=== PATIENT | male | born 1970 | race Caucasian/White ===

== ENCOUNTER → 2016-12-30 | Outpatient (CLI) | payer OTHER ==
--- NOTE | ~2016-12-30 | MR104 ---
[facility] A Service of [facility] & [facility] RADIOLOGY TEXT RESULTS PATIENT: BARBIE HUTCHINS II LOCATION: [facility] : 70 UNIT #: [id number] AGE: [address]: Bc Roque IV, MD SEX: M ORDER DR: [id number] [address] [address] [id number] O MR#: [id number] Acc #: [id number] NAME: BARBIE HUTCHINS : 1970 SEX: M STUDY DATE/TIME: 12/30/2016 18:10 UNIT: [facility] ROOM: STUDY DESCRIPTION: MR Knee Wo Contrast Rt Attending Physician: Bc Roque M.D. Referring Physician: cB Roque M.D. Ordering Physician: Bc Roque M.D. Primary Care Physician: No Primary Care Physician MRI CENTER REPORT This report is preliminary unless electronic signature is present. EXAM MRI right knee 12/30/2016. HISTORY Order states x-ray negative. Right knee effusion, decreased range of motion, pain. History sheet states no specific injury and no prior surgery. Increasing right knee pain, swelling with some instability. In past few months, hard to do normal movements and chores at work for 2-4 months. FINDINGS There is no effusion or popliteal cyst. Patellofemoral alignment is normal. 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 The femoral trochlear articular cartilage is within normal limits. Quadriceps and patellar tendons are intact. Cruciate ligaments are normal. The lateral meniscus, lateral collateral ligament complex, and popliteus tendon are intact. Articular cartilage of the lateral compartment is within normal limits. There is a longitudinal oblique undersurface tear in the posterior body and horn of the medial meniscus, extending into a horizontal tear in the mid posterior body with probable subtle extension to the meniscocapsular junction. There is a lobulated cystic lesion that may reflect a parameniscal cyst emanating from this location with extension anteriorly deep to the medial retinaculum. This cyst measures up to 4.3 cm AP x 3.8 cm craniocaudal. There is additional posterior extension suspected deep to the pes anserine tendons, with a lobulated component just medial to the popliteal neurovascular bundle. Posteriorly, a lobulated collection STS. [facility] A Service of [facility] RADIOLOGY TEXT RESULTS PATIENT: BARBIE HUTCHINS II LOCATION: [facility] : 70 UNIT #: [id number] AGE: [address]: Bc Roque IV, MD SEX: M ORDER DR: measures 4-cm craniocaudal. Appearance is somewhat unusual for a parameniscal cyst and could reflect synovial cyst/ganglion as an alternative diagnosis. It does not appear centered in the pes anserine bursa to suggest definite pes anserine bursitis. There is equivocal low grade chondromalacia of the medial compartment (subtle areas of hypointense signal). There is no high-grade chondromalacia. There is no marrow lesion or fracture. No loose bodies are noted. IMPRESSION 1. Longitudinal oblique undersurface and horizontal medial meniscus tear detailed above without a displaced flap or fragment. 2. Unusual multidirectional lobulated fluid collection medially is in close proximity to a small horizontal tear component of the midbody of the medial meniscus and could reflect an unusual meniscal cyst. There is both anterior and posterior extension detailed above. See montage images. 3. 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 4. Cruciate ligaments and lateral compartment are normal. Dictated by... Akua Lara M.D. THIS IS AN ELECTRONICALLY VERIFIED REPORT Akua Lara M.D. at 01/01/2017 8:57 AM CRISTINA/juan TD: 12/31/2016 16:32 JOB #: [id number] MRI CENTER REPORT Page 1 of 1
== END | disposition home or self-care (01) ==
LOC: SMRI 17:17
DX: M25.461 Effusion, right knee (principal); M23.203 Derangement of unspecified medial meniscus due to old tear or injury, right knee; M22.41 Chondromalacia patellae, right knee
CPT/HCPCS: 73721